=== PATIENT | female | born 1985 | race African-American/Black ===

== ENCOUNTER 2024-04-09 12:48 | Emergency (ER) | payer SELFPAY ==
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
--- NOTE | 2024-04-09 13:24 | RAD REPORT ---
EXAMINATION: Shoulder Left 2+ Views CLINICAL INDICATION: Female, 38 years old. PAIN COMPARISON: No prior exam. FINDINGS: No acute fracture. No malalignment/dislocation. No significant focal degenerative change. Other: n/a IMPRESSION: No acute osseous abnormality.
--- NOTE | 2024-04-09 13:24 | RAD REPORT ---
EXAMINATION: Elbow Left 3 View CLINICAL INDICATION: Female, 38 years old. PAIN COMPARISON: No prior exam. FINDINGS: No acute fracture. No malalignment/dislocation. No significant focal degenerative change. Other: n/a IMPRESSION: No acute osseous abnormality.
[2024-04-09 13:49] VITALS: TEMP 97.4
[2024-04-09 13:50] VITALS: BP 142/87; O2SAT 99
== END 2024-04-09 13:31 | disposition home or self-care (01) ==
LOC: ER 12:48
DX: M54.2 Cervicalgia (principal); M79.602 Pain in left arm; V49.49XA Driver injured in collision with other motor vehicles in traffic accident, initial encounter
CPT/HCPCS: 99283